=== PATIENT | male | born 1945 | race Caucasian/White ===

== ENCOUNTER 2019-02-17 18:25 | Inpatient (IN) | payer MEDICARE, OTHER ==
[~2019-02-17] VITALS: Ht 188 cm; Wt 80.3 kg
--- NOTE | 2019-02-17 19:20 | NUR ---
Patient bib [facility] ambulance from [facility] for pain in left foot. A/Ox3. Speech is clear, speaks in complete sentences, no neuro deficits noted. Patient has a wound on left foot of the 3rd digit. Respiratory even and unlabored, no cough no sob. No cardiovascular distress noted. Denies any n/v/d
[2019-02-17] MEDS ORDERED: VANCOMYCIN IV 1,000 MG in IV DEXTROSE 5% 250 ML IV ONE (19:30)
[2019-02-17] MEDS ORDERED: PIPERACILLIN SODIUM/TAZOBACTAM 3.375 G in IV DEXTROSE 5% 50 ML IV ONE (19:30)
[2019-02-17] MEDS ORDERED: PIPERACILLIN/TAZOBACTAM/D5W 50 ML IV ONE (19:41)
[2019-02-17] MEDS ORDERED: HYDROCODONE/APAP 5-325MG TABLET ONE (19:41)
[2019-02-17] MEDS ORDERED: HYDROCODONE/APAP 5-325MG TABLET PO ONE (19:45)
[2019-02-17 19:46] LABS: CARBON DIOXIDE 28 mmol/L (21-32); CHLORIDE 102 mmol/L (98-107); GLUCOSE 85 mg/dL (74-106); POTASSIUM 4.6 mmol/L (3.5-5.1); UREA NITROGEN, BLOOD 11 mg/dL (7-18)
[2019-02-17 19:52] LABS: ALANINE AMINOTRANSFERASE 32 U/L (16-63); ALKALINE PHOSPHATASE 285 U/L (50-136); ASPARTATE AMINOTRANSFERASE 53 U/L (15-37); BILIRUBIN,TOTAL 1.4 mg/dL (0.2-1.0); TOTAL PROTEIN, SERUM 5.7 g/dL (6.4-8.2)
[2019-02-17 19:55] LABS: BASOPHILS # (AUTO) 0.1 K/uL (0.0-8.0); BASOPHILS % (AUTO) 1.4 % (0.0-2.0); EOSINOPHILS # (AUTO) 0.4 K/uL (0.0-0.7); EOSINOPHILS % (AUTO) 7.1 % (0.0-7.0); HEMATOCRIT 37.9 % (36.7-47.1); HEMOGLOBIN 12.5 g/dL (12.5-16.3); LYMPHOCYTES # (AUTO) 0.8 K/uL (20.0-40.0); LYMPHOCYTES % (AUTO) 14.6 % (20.5-51.5); MEAN CORPUSCULAR HEMOGLOBIN 33.9 uug (23.8-33.4); MEAN CORPUSCULAR HGB CONC 33 g/dL (32.5-36.3); MEAN CORPUSCULAR VOLUME 102.8 fL (73.0-96.2); MONOCYTES # (AUTO) 0.5 K/uL (2.0-10.0); MONOCYTES % (AUTO) 9.4 % (0.0-11.0); NEUTROPHILS # (AUTO) 3.9 K/uL (1.8-8.9); NEUTROPHILS % (AUTO) 67.5 % (38.5-71.5); PLATELET COUNT (AUTO) 239 K/uL (152-348); RED BLOOD CELL COUNT(AUTO) 3.69 MIL/uL (4.06-5.63); WHITE BLOOD COUNT (AUTO) 5.8 K/uL (3.6-10.2)
[2019-02-17] MEDS ORDERED: VANCOMYCIN IV 200 ML ONE (21:09)
[2019-02-17] MEDS ORDERED: ASCO500C18 PO (22:39)
[2019-02-17] MEDS ORDERED: METO50TA16 PO (22:39)
[2019-02-17] MEDS ORDERED: MULT1TAB73 PO (22:39)
[2019-02-17] MEDS ORDERED: ASPI-605 PO (22:39)
[2019-02-17] MEDS ORDERED: UMEC1BLS IH (22:39)
[2019-02-17] MEDS ORDERED: MAGN400O6 PO (22:39)
[2019-02-17] MEDS ORDERED: CALC-343 PO (22:39)
[2019-02-17] MEDS ORDERED: GABA600T12 PO (22:39)
[2019-02-17] MEDS ORDERED: MAGNESIUM HYDROXIDE 30 ML LIQUID UDC PO PRN (22:45)
--- NOTE | 2019-02-17 22:53 | NUR ---
Report given to QUETA Hernández
--- NOTE | 2019-02-17 22:55 | NUR ---
ADMITTED A 73 YEARS OLD MALE WITH DIAGNOSIS OF CELLULITIS OF LLE. PATIENT AAOX3. ABLE TO ANSWER QUESTIONS AND FOLLOW DIRECTIONS. IN NO ACUTE DISTRESS. COMPLAINED OF PAIN ON LEFT FOOT AND BUTTOCKS AREA. WILL PROVIDED PAIN MEDICATION PER ORDER. NOTED WITH OCCASIONAL MOIST BUT NON-PRODUCTIVE COUGH. RHONCHI HEARD ON RIGHT LOWER AND UPPER LOBE UPON AUSCULTATION. O2 SATURATION BETWEEN 77-86% ON ROOM AIR. O2 AT 2LPM VIA NC PROVIDED AND O2 SATURATION WENT UP TO 92%. IV SITE ON LEFT AC INTACT AND PATENT. IV VANCO ONGOING. NO ADVERSE REACTION NOTED FROM IV ABX. MULTIPLE SKIN ISSUES NOTED. ROUTINE ADMISSION CARE DONE. PLAN OF CARE INITIATED. SAFETY MEASURE INITIATED AND CALL TORRES WITHIN REACH,
[2019-02-17] MEDS ORDERED: ZOLPIDEM 5 MG TABLET PO PRN (23:00)
[2019-02-17] MEDS ORDERED: ONDANSETRON 4 MG/2 ML VIAL IV PRN (23:00)
[2019-02-17] MEDS ORDERED: ACETAMINOPHEN 325 MG TABLET PO PRN (23:00)
--- NOTE | 2019-02-17 23:05 | NUR ---
Patient transported to [facility] in stable condition.
[2019-02-18] MEDS: MORPHINE SULFATE 2 MG/1 ML DISP.SYRIN IV PRN ×5 (00:06→22:05)
[2019-02-18 00:14] VITALS: BP 116/60
[2019-02-18] MEDS ORDERED: PIPERACILLIN/TAZOBACTAM/D5W 50 ML IV ONE (01:38)
[2019-02-18] MEDS: PIPERACILLIN/TAZOBACTAM/D5W 3.375 G in PREMIXED 1 EACH IV SCH ×3 (05:40→21:36)
[2019-02-18] MEDS: PANTOPRAZOLE SODIUM 40 MG TABLET.DR PO SCH (06:00)
--- NOTE | 2019-02-18 06:36 | NUR ---
Patient remains AAOx3. In no acute distress. On O2 at 2LPM via NC in place. Still with occasional productive cough and able to expectorate yellow tinged phlegm. Denies any SOB. Morphine 2mg IV given for complain of pain and effective. IV site on left AC intact and patent. No adverse reaction noted from IV ABX. Turn and reposition for comfort. Handle gently and carefully during care. Skin fragile. 3+ pitting edema on both LE still present. Elevated with pillow. Needs attended to and met. Safety measure maintained and call luu within reach.
[2019-02-18 06:48] VITALS: BP 120/93
--- NOTE | 2019-02-18 07:20 | NUR ---
patient alert and oriented and awake , IV intact and patent . no s/s of scute distress noted at this time. no c/o pain at this time , safety and comfort provided at all times will continue to monitor.
[2019-02-18 07:56] LABS: ALANINE AMINOTRANSFERASE 25 U/L (16-63); ALKALINE PHOSPHATASE 254 U/L (50-136); ASPARTATE AMINOTRANSFERASE 54 U/L (15-37); BILIRUBIN,TOTAL 2.4 mg/dL (0.2-1.0); CARBON DIOXIDE 27 mmol/L (21-32); CHLORIDE 102 mmol/L (98-107); CHOLESTEROL 67 mg/dL (<200); CREATININE 1.2 mg/dL (0.6-1.3); GLUCOSE 92 mg/dL (74-106); MAGNESIUM 1.4 mg/dL (1.8-2.4); PHOSPHOROUS 3.6 mg/dL (2.5-4.9); POTASSIUM 5.1 mmol/L (3.5-5.1); TOTAL PROTEIN, SERUM 5.2 g/dL (6.4-8.2); TRIGLYCERIDES 96 MG/DL (30-150); UREA NITROGEN, BLOOD 12 mg/dL (7-18)
[2019-02-18 08:00] LABS: HEMATOCRIT 39.9 % (36.7-47.1); HEMOGLOBIN 12.7 g/dL (12.5-16.3); MEAN CORPUSCULAR HEMOGLOBIN 33.6 uug (23.8-33.4); MEAN CORPUSCULAR HGB CONC 32 g/dL (32.5-36.3); RED BLOOD CELL COUNT(AUTO) 3.77 MIL/uL (4.06-5.63); WHITE BLOOD COUNT (AUTO) 12.8 K/uL (3.6-10.2)
[2019-02-18 08:01] LABS: IRON, SERUM 80 ug/dL (50-175)
[2019-02-18 08:03] LABS: PLATELET COUNT (AUTO) 215 K/uL (152-348)
[2019-02-18 08:07] LABS: HDL CHOLESTEROL < 10 mg/dL (40-60)
[2019-02-18 08:10] LABS: THYROID STIMULATING HORMONE 1.016 mIU/mL (0.358-3.740)
[2019-02-18 08:20] LABS: BAND % (MANUAL) 16 % (0-10); BASOPHILS % (MANUAL) 0 % (0-2); EOSINOPHILS % (MANUAL) 3 % (0-8); LYMPHOCYTES % (MANUAL) 1 % (20-40); MONOCYTES % (MANUAL) 2 % (2-10); NEUTROPHILS % (MANUAL) 78 % (42-75)
[2019-02-18] MEDS: PROTEIN SUPPLEMENT (PROSTAT) 30 ML LIQUID PO SCH ×3 (08:57→17:01)
[2019-02-18] MEDS ORDERED: VANCOMYCIN IV 1,250 MG in IV DEXTROSE 5% 500 ML IV SCH (09:00)
[2019-02-18] MEDS: ZINC SULFATE 220 MG CAPSULE PO SCH (09:23)
[2019-02-18] MEDS: MULTIVITAMINS,THERAPEUTIC TABLET PO SCH (09:23)
[2019-02-18] MEDS: GABAPENTIN 300 MG CAPSULE PO SCH ×3 (09:23→17:02)
[2019-02-18] MEDS: ASPIRIN EC 81 MG TABLET.DR PO SCH (09:23)
[2019-02-18] MEDS: ASCORBIC ACID 500 MG TABLET PO SCH (09:23)
[2019-02-18] MEDS: MAGNESIUM SULFATE/D5W 100 ML IV SCH ×4 (11:28→14:41)
--- NOTE | 2019-02-18 11:39 | NUR ---
Clinical Pharmacy Note: Vancomycin Dosing per Pharmacy Subjective: Vancomycin IV to start on this 73 yo male patient for cellulitis. Objective: BUN 12/Scr 1.2 WBC 12.8 Temperature 98.6 ht 187.9 cm wt 80 kg Assessment/Plan: Patient received vanco 1gm IVPB x1 on 02/17 at 2100. Will start vancomycin 1250mg q17h for estimated trough of 15.3, first dose today at 0900. Will check trough before 4th scheduled dose of new regimen (not ordered yet). Will follow renal function and adjust if were to become unstable. Otherwise will follow level accordingly. Will follow
[2019-02-18 11:40] VITALS: BP 128/96
--- NOTE | 2019-02-18 12:27 | NUR ---
WOUND CARE CONSULT: PT PRESENTS WITH MULTIPLE SKIN ISSUES INCLUDING RT GREAT TOE ESCHAR, LEFT FOOT BRUISING WITH CRUSTED WOUNDS ON TOES, SCABS TO LOWER LEGS, RT LOWER LEG WOUND, RT THIGH SKIN TEAR, GENERALIZED EDEMA WITH RAISED REDNESS TO BILATERAL LATERAL UPPER BACK AREAS WITH EDEMA, PRESENT ON ADMISSION. PT EXAMINED BY Tico Flores. RECOMMEND DPM CONSULT. RECOMMENDATIONS MADE FOR SKIN PROTECTION AND WOUND CARE OF RT THIGH. FIRST STEP LOW AIRLOSS MATTRESS ON ORDER. WILL SEE PRN. BAINS IN AGREEMENT WITH PLAN OF CARE. Addendum: 02/18/19 at 1233 by TONI STEWART RN DPM CONSULT RECOMMENDED. DR NEVAREZ NOTIFIED OF DPM CONSULT REQUEST.
[2019-02-18] MEDS ORDERED: Z GUARD REMEDY PASTE 57 GM TUBE TOP PRN (12:30)
--- NOTE | 2019-02-18 12:32 | NUR ---
Notified Dr. Olivera that patient has not urinated since he got here, did bladder scan with 255ml right, also notified that patient is eating and encourage to drink water and other fluids, Doctor replied , To monitor patient for now.
[2019-02-18 15:25] VITALS: BP 94/51
[2019-02-18 18:13] LABS: *BILIRUBIN,URIN 1+ (NEGATIVE); *BLOOD, URINE 1+ (NEGATIVE); *CLARITY,URINE CLOUDY (CLEAR); *KETONES,URINE NEGATIVE (NEGATIVE); LEUKOCYTE ESTERASE ,URINE 3+ (NEGATIVE); NITRITE, URINE POSITIVE (NEGATIVE); UGLUCOSE NEGATIVE (NEGATIVE)
[2019-02-18 18:20] LABS: *COLOR,URINE AMBER (YELLOW)
[2019-02-18 18:57] LABS: BACTERIA,URINE FEW /HPF (NONE SEEN); SQUAMOUS EPITHELIAL CELL,UR FEW /HPF (NONE SEEN); WBC,URINE TNTC /HPF (0-3)
--- NOTE | 2019-02-18 19:20 | NUR ---
Received patient lying in bed asleep but easily arouse to verbal stimuli. Remains AOx3. In no acute distress. On O2 at 2LPM via NC in place. No coughing noted at this time. Denies any SOB. IV site on left hand intact and patent. Safety measure initiated and call luu within reach.
--- NOTE | 2019-02-18 19:35 | NUR ---
patient alert and oriented and awake continues to watch TV , able to make needs known, no s/s of scute distress noted at this time. no c/o pain at this time , safety and comfort provided at all times will continue to monitor.
[2019-02-18 20:06] VITALS: BP 100/62
[2019-02-18] MEDS: Z GUARD REMEDY PASTE 57 GM TUBE TOP SCH (20:59)
[2019-02-18] MEDS: CULTURELLE CAPSULE PO SCH (20:59)
[2019-02-19] MEDS: VANCOMYCIN IV 1,250 MG in IV DEXTROSE 5% 500 ML IV SCH ×2 (01:04→18:32)
[2019-02-19] MEDS: PIPERACILLIN/TAZOBACTAM/D5W 3.375 G in PREMIXED 1 EACH IV SCH ×3 (05:40→21:32)
[2019-02-19] MEDS: PANTOPRAZOLE SODIUM 40 MG TABLET.DR PO SCH (06:06)
[2019-02-19 06:16] VITALS: BP 115/62
--- NOTE | 2019-02-19 06:18 | NUR ---
Patient AAOx3. In no acute distress. On O2 at 2LPM via NC in place. Sporadic non-productive cough today. Denies any SOB. Morphine 2mg IV given for complain of pain and effective. IV site on left hand intact and patent. No adverse reaction noted from IV ABX. 3+ pitting edema on both LE still present. Elevated BLE with pillow. Wounds with dressing intact. Needs attended to and met. Safety measure maintained and call luu within reach.
[2019-02-19 06:43] LABS: BASOPHILS % (AUTO) 0.3 % (0.0-2.0); EOSINOPHILS # (AUTO) 0.3 K/uL (0.0-0.7); EOSINOPHILS % (AUTO) 3.1 % (0.0-7.0); HEMATOCRIT 38.9 % (36.7-47.1); HEMOGLOBIN 12.6 g/dL (12.5-16.3); LYMPHOCYTES # (AUTO) 0.5 K/uL (20.0-40.0); LYMPHOCYTES % (AUTO) 4.9 % (20.5-51.5); MEAN CORPUSCULAR HEMOGLOBIN 33.9 uug (23.8-33.4); MEAN CORPUSCULAR HGB CONC 33 g/dL (32.5-36.3); MEAN CORPUSCULAR VOLUME 104.5 fL (73.0-96.2); MONOCYTES # (AUTO) 0.4 K/uL (2.0-10.0); MONOCYTES % (AUTO) 4.1 % (0.0-11.0); NEUTROPHILS # (AUTO) 9.4 K/uL (1.8-8.9); NEUTROPHILS % (AUTO) 87.6 % (38.5-71.5); PLATELET COUNT (AUTO) 218 K/uL (152-348); RED BLOOD CELL COUNT(AUTO) 3.72 MIL/uL (4.06-5.63); WHITE BLOOD COUNT (AUTO) 10.7 K/uL (3.6-10.2)
[2019-02-19 06:53] LABS: ALANINE AMINOTRANSFERASE 26 U/L (16-63); ALKALINE PHOSPHATASE 237 U/L (50-136); ASPARTATE AMINOTRANSFERASE 53 U/L (15-37); BILIRUBIN,TOTAL 3.2 mg/dL (0.2-1.0); CARBON DIOXIDE 28 mmol/L (21-32); CHLORIDE 96 mmol/L (98-107); CREATININE 1.2 mg/dL (0.6-1.3); GLUCOSE 101 mg/dL (74-106); MAGNESIUM 2.3 mg/dL (1.8-2.4); PHOSPHOROUS 3.6 mg/dL (2.5-4.9); POTASSIUM 4.8 mmol/L (3.5-5.1); TOTAL PROTEIN, SERUM 5.3 g/dL (6.4-8.2); UREA NITROGEN, BLOOD 16 mg/dL (7-18)
--- NOTE | 2019-02-19 06:57 | NUR ---
Lab reported critical value for Albumin of 1.4
--- NOTE | 2019-02-19 07:28 | NUR ---
Patient resting comfortably in bed at this time. Awaiting [employer] mattress. Multiple wounds with specific MD orders for wound care - will provide. Stable condition / no signs of distress. Wheel chair bound / fall risk. Bed alarm on, call light within reach of patient. Safety measures implemented. Will continue to monitor throughout shift.
[2019-02-19] MEDS: ASCORBIC ACID 500 MG TABLET PO SCH (08:25)
[2019-02-19] MEDS: MULTIVITAMINS,THERAPEUTIC TABLET PO SCH (08:25)
[2019-02-19] MEDS: ZINC SULFATE 220 MG CAPSULE PO SCH (08:25)
[2019-02-19] MEDS: PROTEIN SUPPLEMENT (PROSTAT) 30 ML LIQUID PO SCH ×3 (08:25→17:33)
[2019-02-19] MEDS: GABAPENTIN 300 MG CAPSULE PO SCH ×3 (08:25→17:33)
[2019-02-19] MEDS: CULTURELLE CAPSULE PO SCH ×2 (08:25→20:47)
[2019-02-19] MEDS: ASPIRIN EC 81 MG TABLET.DR PO SCH (08:25)
[2019-02-19] MEDS: Z GUARD REMEDY PASTE 57 GM TUBE TOP SCH ×2 (08:26→20:47)
[2019-02-19] MEDS: MORPHINE SULFATE 2 MG/1 ML DISP.SYRIN IV PRN ×3 (09:17→20:53)
--- NOTE | 2019-02-19 10:30 | NUR ---
Patient left for [facility] at this time for MRI w/o contrast for bilateral lower extremities.
[2019-02-19 11:16] VITALS: BP 139/115
--- NOTE | 2019-02-19 12:30 | NUR ---
Patient returned from MRI at this time, stable condition, no signs of distress.
[2019-02-19] MEDS: CADEXOMER IODINE 40 GM TUBE TOP SCH (12:56)
[2019-02-19] MEDS: SODIUM HYPOCHLORITE 0.125% 473 ML BOTTLE TP SCH (12:56)
--- NOTE | 2019-02-19 12:57 | NUR ---
Clinical Pharmacy Note: Vancomycin Dosing per Pharmacy Subjective: Vancomycin IV to continue on this 73 yo male patient for cellulitis. Objective: BUN 16/Scr 1.2 WBC 10.7 Temperature 98.2 ht 187.9 cm wt 80 kg Assessment/Plan: Will continue same dose of vancomycin 1250mg IVPB q17h for today. 3rd dose today at 1900. Will check trough before 4th scheduled dose of new regimen (ordered 02/20 at 1130). Will follow level when available & adjust the dose if needed. Will follow
[2019-02-19 15:30] VITALS: BP 95/45
--- NOTE | 2019-02-19 16:45 | NUR ---
Wound care provided to all ulcerations, skin tears/wounds in bilateral lower extremities per MD orders.
[2019-02-19 18:32] VITALS: BP 98/45
--- NOTE | 2019-02-19 18:44 | NUR ---
ABX running at this time. Bed rest. Wound care provided. Pain management provided. Patient requested for morphine at this time but blood pressure too low for administration. Bed alarm on, [employer] Mattress on, Call light within reach. safety measures implemented. Will continue to monitor until end of shift.
--- NOTE | 2019-02-19 19:30 | NUR ---
patient received in bed. a/ox3. no signs of acute distress. safety and comfort measures provided. will continue plan of care.
[2019-02-19 20:05] VITALS: BP 110/58
--- NOTE | 2019-02-19 20:53 | NUR ---
c/o of pain. morphine 1mL administered. tolerated well.
[2019-02-20] MEDS: MORPHINE SULFATE 2 MG/1 ML DISP.SYRIN IV PRN ×3 (01:20→15:11)
--- NOTE | 2019-02-20 01:20 | NUR ---
c/o of pain. morphine 1ml administered. tolerated well.
[2019-02-20] MEDS: PIPERACILLIN/TAZOBACTAM/D5W 3.375 G in PREMIXED 1 EACH IV SCH ×2 (05:07→13:40)
[2019-02-20 06:00] VITALS: BP 99/58
[2019-02-20] MEDS: PANTOPRAZOLE SODIUM 40 MG TABLET.DR PO SCH ×2 (06:44→06:45)
--- NOTE | 2019-02-20 06:52 | NUR ---
patient slept intermittently throughout the night. a/ox 3. no signs of acute distress. safety and comfort measures provided. all medications administered and tolerated well. will endorse care accordingly. c/o of pain. morphine administered 119. patient tolerated well. patient refused Protonix in the morning despite education. returned to [facility].
[2019-02-20 07:20] LABS: BASOPHILS % (AUTO) 0.6 % (0.0-2.0); EOSINOPHILS # (AUTO) 0.6 K/uL (0.0-0.7); EOSINOPHILS % (AUTO) 7.9 % (0.0-7.0); HEMATOCRIT 36.9 % (36.7-47.1); HEMOGLOBIN 12.2 g/dL (12.5-16.3); LYMPHOCYTES # (AUTO) 0.4 K/uL (20.0-40.0); LYMPHOCYTES % (AUTO) 5.2 % (20.5-51.5); MEAN CORPUSCULAR HEMOGLOBIN 34.4 uug (23.8-33.4); MEAN CORPUSCULAR HGB CONC 33 g/dL (32.5-36.3); MEAN CORPUSCULAR VOLUME 104.3 fL (73.0-96.2); MONOCYTES # (AUTO) 0.5 K/uL (2.0-10.0); MONOCYTES % (AUTO) 6.7 % (0.0-11.0); NEUTROPHILS # (AUTO) 5.8 K/uL (1.8-8.9); NEUTROPHILS % (AUTO) 79.6 % (38.5-71.5); PLATELET COUNT (AUTO) 166 K/uL (152-348); RED BLOOD CELL COUNT(AUTO) 3.54 MIL/uL (4.06-5.63); WHITE BLOOD COUNT (AUTO) 7.3 K/uL (3.6-10.2)
[2019-02-20 07:33] LABS: CARBON DIOXIDE 26 mmol/L (21-32); CHLORIDE 99 mmol/L (98-107); GLUCOSE 129 mg/dL (74-106); MAGNESIUM 2.2 mg/dL (1.8-2.4); PHOSPHOROUS 3.6 mg/dL (2.5-4.9); POTASSIUM 4.4 mmol/L (3.5-5.1); UREA NITROGEN, BLOOD 15 mg/dL (7-18)
[2019-02-20 07:44] LABS: THYROID STIMULATING HORMONE 1.225 mIU/mL (0.358-3.740)
[2019-02-20] MEDS: PROTEIN SUPPLEMENT (PROSTAT) 30 ML LIQUID PO SCH ×3 (08:38→17:46)
[2019-02-20] MEDS: CULTURELLE CAPSULE PO SCH (08:39)
[2019-02-20] MEDS: ASPIRIN EC 81 MG TABLET.DR PO SCH (08:39)
[2019-02-20] MEDS: MULTIVITAMINS,THERAPEUTIC TABLET PO SCH (08:39)
[2019-02-20] MEDS: GABAPENTIN 300 MG CAPSULE PO SCH ×3 (08:39→17:46)
[2019-02-20] MEDS: ZINC SULFATE 220 MG CAPSULE PO SCH (08:39)
[2019-02-20] MEDS: ASCORBIC ACID 500 MG TABLET PO SCH (08:39)
[2019-02-20] MEDS: CADEXOMER IODINE 40 GM TUBE TOP SCH (08:40)
[2019-02-20] MEDS: SODIUM HYPOCHLORITE 0.125% 473 ML BOTTLE TP SCH (08:40)
[2019-02-20] MEDS: Z GUARD REMEDY PASTE 57 GM TUBE TOP SCH (08:40)
[2019-02-20 09:06] LABS: URIC ACID 4.7 mg/dL (3.5-7.2)
[2019-02-20 11:09] VITALS: BP 98/46
--- NOTE | 2019-02-20 12:30 | NUR ---
Clinical Pharmacy Note: Vancomycin Dosing per Pharmacy Subjective: Vancomycin IV to continue on this 73 yo male patient for cellulitis. Objective: BUN 15/Scr 1.0 WBC 7.3 Temperature 98.6 Vanco trough level on 02/20 at 1130: 22 ht 187.9 cm wt 80 kg Assessment/Plan: Since vanco trough level is 22 mcg/ml, will change dose to vancomycin 1250mg IVPB q22h for predicted vanco trough level of 15 mcg/ml at steady state. 1st dose today at 1999. Will check trough before 4th scheduled dose of new regimen (not yet ordered ). Will monitor renal function & adjust the dose if needed. Will follow
[2019-02-20 15:16] VITALS: BP 87/58
--- NOTE | 2019-02-20 19:08 | NUR ---
patient discharge to [facility] with 2 EMT via ambulance, discharge instruction given and verbalized understanding , id band removed and iv remain due to continue IV medication at the facility. belonging accounted for and signed. question and concerns addressed.
[2019-02-20] MEDS ORDERED: VANCOMYCIN IV 1,250 MG in IV DEXTROSE 5% 500 ML IV SCH (20:00)
== END 2019-02-20 19:15 | DRG 299 ==
LOC: ER 18:28 → MEDSURG3 22:07
PROVIDERS: ADMIT Internal Medicine
DX: I70.245 Atherosclerosis of native arteries of left leg with ulceration of other part of foot (principal); E43 Unspecified severe protein-calorie malnutrition; L03.116 Cellulitis of left lower limb; R17 Unspecified jaundice; E87.1 Hypo-osmolality and hyponatremia; L97.818 Non-pressure chronic ulcer of other part of right lower leg with other specified severity; L97.518 Non-pressure chronic ulcer of other part of right foot with other specified severity; I70.221 Atherosclerosis of native arteries of extremities with rest pain, right leg; L97.529 Non-pressure chronic ulcer of other part of left foot with unspecified severity; Z98.1 Arthrodesis status; B35.1 Tinea unguium; J44.9 Chronic obstructive pulmonary disease, unspecified; G62.9 Polyneuropathy, unspecified; M81.0 Age-related osteoporosis without current pathological fracture; Z99.3 Dependence on wheelchair; E83.42 Hypomagnesemia; Z68.22 Body mass index [BMI] 22.0-22.9, adult; K59.00 Constipation, unspecified; I45.10 Unspecified right bundle-branch block; F17.210 Nicotine dependence, cigarettes, uncomplicated; D75.89 Other specified diseases of blood and blood-forming organs; M19.072 Primary osteoarthritis, left ankle and foot; M19.071 Primary osteoarthritis, right ankle and foot
CPT/HCPCS: 36415; 70030-TC; 71045; 73630; 73721; 76700; 83550; 83735; 84100; 84300; 84443; 84550; 85025; 85651; 85730; 87040; 87077; 87086; 93005; 97110; 97530; A4217; A4663; G0378; J2270; J2543; J3370; J3475; J3490; J7040; J7060